=== PATIENT | female | born 1955 | race Caucasian/White ===

== ENCOUNTER 2021-09-26 14:15 | Emergency (ER) | payer MEDICARE ==
[~2021-09-26] VITALS: Ht 165.1 cm; Wt 100.0 kg
[2021-09-26 15:21] VITALS: BP 151/67
[2021-09-26 15:34] LABS: URINE BILIRUBIN - DIPSTICK NEGATIVE (NEGATIVE); URINE BLOOD DIPSTICK NEGATIVE (NEGATIVE); URINE COLOR YELLOW; URINE GLUCOSE - DIPSTICK NEGATIVE (NEGATIVE); URINE KETONE NEGATIVE (NEGATIVE); URINE LEUK ESTERASE NEGATIVE (NEGATIVE); URINE PH 5.5 (4.5-8.0); URINE PROTEIN - DIPSTICK NEGATIVE (NEG-TRACE); URINE SPECIFIC GRAVITY >=1.030; URINE UROBILINOGEN - DIPSTICK 0.2 E.U./dL (0.2)
[2021-09-26 15:35] LABS: URINE NITRITE - DIPSTICK NEGATIVE (Negative)
[2021-09-26 15:53] LABS: HEMATOCRIT 35.4 % (37.0-47.0); HEMOGLOBIN 10.6 g/dl (12.0-16.0); IMMATURE GRANULOCYTES 0.1 % (0.0-5.0); MEAN CELL VOLUME 84.1 fL CALC (80.0-100.0); MEAN CORPUSCULAR HGB 25.2 pG CALC (26.0-32.0); MEAN CORPUSCULAR HGB CONC 29.9 g/dL CAL (32.0-36.0); NEUT# 7.43 thou/uL (2.00-7.15); RED BLOOD COUNT 4.21 mill/uL (4.20-5.60); RED CELL DISTRI WIDTH 15.8 % (11.5-15.5)
[2021-09-26 16:07] LABS: ALBUMIN 3.9 g/dL (3.2-5.0); BILIRUBIN, TOTAL 0.8 mg/dL (0.0-1.4); CREATININE 1.2 mg/dL (0.5-1.0); POTASSIUM 4.4 mmol/l (3.5-5.1)
[2021-09-26] MEDS ORDERED: HYDROCO/APAP1 TA9 PO (17:31)
[2021-09-26] MEDS ORDERED: TAMSULOSIN0.4 MG PO (17:31)
[2021-09-26] MEDS ORDERED: ZOFRAN4 M1 PO (17:31)
[2021-09-26] MEDS ORDERED: TORADOL PO (17:33)
== END 2021-09-26 19:00 | disposition home or self-care (01) ==
LOC: ED 14:15
PROVIDERS: Family Medicine
DX: N13.2 Hydronephrosis with renal and ureteral calculous obstruction (principal); Z87.442 Personal history of urinary calculi; Z86.718 Personal history of other venous thrombosis and embolism; Z98.84 Bariatric surgery status

== ENCOUNTER 2022-02-06 11:13 | Emergency (ER) | payer MEDICARE ==
[~2022-02-06] VITALS: Ht 165.1 cm; Wt 78.3 kg
[~2022-02-06 11:13] MED LIST: HYDROCO/APAP1 TA9 PO; TAMSULOSIN0.4 MG PO; TORADOL PO; ZOFRAN4 M1 PO
[2022-02-06 11:43] LABS: URINE BILIRUBIN - DIPSTICK NEGATIVE (NEGATIVE); URINE BLOOD DIPSTICK TRACE-INTACT (NEGATIVE); URINE COLOR YELLOW; URINE GLUCOSE - DIPSTICK NEGATIVE (NEGATIVE); URINE KETONE NEGATIVE (NEGATIVE); URINE LEUK ESTERASE NEGATIVE (NEGATIVE); URINE PROTEIN - DIPSTICK TRACE mg/dL (NEG-TRACE); URINE SPECIFIC GRAVITY 1.015
[2022-02-06 11:44] LABS: URINE NITRITE - DIPSTICK NEGATIVE (Negative)
[2022-02-06] MEDS ORDERED: PYRIDIUM200 MG PO (12:00)
[2022-02-06 12:22] VITALS: BP 124/69
== END 2022-02-06 12:22 | disposition home or self-care (01) ==
LOC: ED 11:13
DX: R30.0 Dysuria (principal); Z87.442 Personal history of urinary calculi; Z98.84 Bariatric surgery status; Z86.718 Personal history of other venous thrombosis and embolism

== ENCOUNTER 2022-08-16 06:37 | Day surgery (SDC) | payer MEDICARE ==
[~2022-08-16] VITALS: Ht 160 cm; Wt 90.7 kg
[~2022-08-16 06:37] MED LIST changes: +ALENDRONATE35 MG PO; +GABAPENTIN100 MG PO; +MULTI VIT PO; +OXYCOD-APAP1 TA1 PO; +PRAMIPEXOLE D0.25 MG PO; +PYRIDIUM200 MG PO
[2022-08-16] MEDS ORDERED: IMITREX25 MG PO (06:48)
[2022-08-16 09:35] VITALS: BP 112/82
== END 2022-08-16 09:33 | disposition home or self-care (01) ==
LOC: ENDO 06:37
PROVIDERS: ATTEND Internal Medicine Gastroenterology
PROC: 0DBN8ZX Excision of Sigmoid Colon, Via Natural or Artificial Opening Endoscopic, Diagnostic (ICD-10-PCS; principal; 2022-08-16)
PROC: 0DBL8ZX Excision of Transverse Colon, Via Natural or Artificial Opening Endoscopic, Diagnostic (ICD-10-PCS; 2022-08-16)
DX: Z12.11 Encounter for screening for malignant neoplasm of colon (principal); D12.7 Benign neoplasm of rectosigmoid junction; D12.5 Benign neoplasm of sigmoid colon; D12.3 Benign neoplasm of transverse colon; K64.8 Other hemorrhoids; K57.30 Diverticulosis of large intestine without perforation or abscess without bleeding; E53.8 Deficiency of other specified B group vitamins